=== PATIENT | female | born 1955 | race Caucasian/White ===

== ENCOUNTER 2025-03-09 09:44 | Inpatient (IN) | payer SELFPAY ==
[~2025-03-09] VITALS: Ht 160 cm; Wt 99.8 kg
[2025-03-09] VITALS (47 sets, daily range): BP systolic 57–131; BP diastolic 15–99; PULSE 77–154; RESP 16–36; TEMP 35.028–36.3; O2SAT 94–100
[2025-03-09] MEDS: DILTIAZEM HCL 5MG/ML 5ML VIAL IV ONE ×2 (10:12→10:52)
[2025-03-09 10:27] LABS: HEMATOCRIT. 42.7 % (36.0-48.0); HEMOGLOBIN. 12.6 g/dL (12.0-16.0); MEAN PLATELET VOLUME 8.0 fl (7.4-10.4); PLATELET 88 x1000/uL (130-400); RED BLOOD CELL COUNT 5.19 mill/uL (4.2-5.4); RED CELL DISTRIBUTION WIDTH 18.4 % (11.6-14.6)
[2025-03-09] MEDS: DILTIAZEM HCL 60MG TABLET PO ONE (10:31)
[2025-03-09 10:42] LABS: CREATININE 1.8 mg/dL (0.6-1.0); UREA NITROGEN BLOOD 30 mg/dL (9-23)
[2025-03-09 10:43] LABS: PROTEIN TOTAL 6.6 g/dL (6.0-8.3)
[2025-03-09 10:44] LABS: ASPARTATE AMINOTRANSFERASE 561 IU/L (<34); BILIRUBIN DIRECT 2.0 mg/dL (<=3.0); BILIRUBIN TOTAL 3.0 mg/dL (0.1-1.0)
[2025-03-09 10:53] LABS: TROPONIN I HIGH SENSITIVITY 470 ng/L (3.0-34)
[2025-03-09 11:10] LABS: BAND% 5.0 % (1.0-6.0); LYMPHOCYTES % MANUAL 7.0 % (20.0-60.0); MONOCYTES % MANUAL 7.0 % (2.0-8.0); NEUTROPHILS % MANUAL 81.0 % (45.0-75.0); PLATELET ESTIMATE DECREASED
[2025-03-09] MEDS: PIPERACILLIN/TAZO 3.375G/50ML 50 ML IV ONE (11:31)
[2025-03-09] MEDS: DEXTROSE 50% WATER 50ML SYRINGE IV ONE ×2 (11:31→12:10)
[2025-03-09] MEDS: SODIUM CHLORIDE 0.9% (SEPSIS BOLUS) IV SCH (11:31)
[2025-03-09 11:40] LABS: INR 2.5
[2025-03-09] MEDS: VANCOMYCIN 1G PREMIX 200 ML IV ONE (12:09)
[2025-03-09] MEDS: SODIUM CHLORIDE 0.9% 1,000 ML IV ONE (12:10)
[2025-03-09 12:31] LABS: BG BASE EXCESS -16.8 mmol/L (-2.0-3.0); BG CARBOXYHEMOGLOBIN 1.0 % (0.5-1.5); BG DEOXYHEMOGLOBIN 6.3 % (0.0-5.0); BG FRACTION INSPIRED OXYGEN 70; BG HCO3 ACT 9.0 mmol/L (21.0-28.0); BG METHEMOGLOBIN 0.3 % (0.5-1.5); BG OXYGEN SATURATION 93.6 % (94.0-98.0); BG OXYHEMOGLOBIN 92.4 % (94.0-98.0); BG PCO2 22.4 mmHg (32.0-45.0); BG PH 7.222 (7.350-7.450); BG PO2 82.1 mmHg (83.0-108.0); BG SAMPLE SITE RIGHT RADIAL; BG TOTAL HEMOGLOBIN 12.5 g/dL (12.0-16.0); BG TOTAL RESPIRATORY RATE 36 b/min; BG VENT MODE MASK - BIPAP; BG VENT RATE 20.0 set
[2025-03-09] MEDS ORDERED: CALCIUM CHLORIDE 1GM/10ML SYR IV NR (17:00)
[2025-03-09] MEDS: PHENYLEPHRINE 50MG/250ML PMX 250 ML IV PRN (17:05)
[2025-03-09] MEDS: SODIUM BICARBONATE 8.4% 50MEQ/50ML SYR IV NR ×2 (17:06→17:07)
[2025-03-09] MEDS: VASOPRESSIN 20 UNIT in SODIUM CHLORIDE 0.9% 99 ML IV PRN (17:07)
[2025-03-09] MEDS: DEXT 5%/0.9% NACL 1,000 ML IV ONE (17:10)
[2025-03-09] MEDS: VANCOMYCIN 750MG/150ML (BAXTER) IV SCH (17:10)
[2025-03-09] MEDS: BLOOD SUGAR DIAGNOSTIC STRIP TEST SCH (17:11)
[2025-03-09] MEDS ORDERED: IPRATROPIUM/ALBUTEROL 0.5-3(2.5)MG/3ML NEB HHN PRN (17:15)
[2025-03-09 17:46] LABS: BG BASE EXCESS -23.9 mmol/L (-2.0-3.0); BG CARBOXYHEMOGLOBIN 1.0 % (0.5-1.5); BG DEOXYHEMOGLOBIN 6.7 % (0.0-5.0); BG FRACTION INSPIRED OXYGEN 100; BG HCO3 ACT 8.8 mmol/L (21.0-28.0); BG METHEMOGLOBIN 0.2 % (0.5-1.5); BG OXYGEN SATURATION 93.2 % (94.0-98.0); BG OXYHEMOGLOBIN 92.1 % (94.0-98.0); BG PCO2 46.9 mmHg (32.0-45.0); BG PEEP (cmH2O) 5.0 cmH2O; BG PH 6.893 (7.350-7.450); BG PO2 100.1 mmHg (83.0-108.0); BG SAMPLE SITE RIGHT RADIAL; BG TIDAL VOLUME(mL) 450.0 mL; BG TOTAL HEMOGLOBIN 12.9 g/dL (12.0-16.0); BG VENT MODE VENT - AC; BG VENT RATE 18.0 set
[2025-03-09] MEDS ORDERED: SODIUM BICARBONATE 150 MEQ in SODIUM CHLORIDE 0.45% 850 ML IV SCH (18:00)
[2025-03-09] MEDS: SODIUM BICARBONATE 8.4% 50MEQ/50ML SYR IV SCH (18:00)
[2025-03-09] MEDS: PROPOFOL 10MG/ML 100ML 100 ML IV PRN (19:26)
[2025-03-09] MEDS: NOREPINEPHRINE 8MG/250ML PMX 250 ML IV PRN (19:27)
[2025-03-09 19:30] LABS: PHOSPHORUS 10.1 mg/dL (2.5-4.9)
[2025-03-09] MEDS: SODIUM BICARBONATE 150 MEQ in DEXTROSE 5% WATER 850 ML IV SCH (20:01)
[2025-03-09] MEDS: PHENYLEPHRINE 100 MG in DEXT 5% WATER 240 ML IV PRN (20:02)
[2025-03-09] MEDS: NOREPINEPHRINE 32 MG in DEXT 5% WATER 218 ML IV PRN (20:02)
[2025-03-09] MEDS: FENTANYL 2500MCG/250ML PMX 250 ML IV PRN (20:03)
[2025-03-09 20:32] LABS: INFLUENZA TYPE A Presumptive Negative (Pres. Neg.); INFLUENZA TYPE B Presumptive Negative (Pres. Neg.)
[2025-03-09 20:33] LABS: RESPIRATORY SYNCYTIAL VIRUS Not Detected (Not Detectd)
[2025-03-09] MEDS: PIPERACILLIN/TAZO 3.375G/50ML 50 ML IV SCH (20:56)
[2025-03-09] MEDS: MIDODRINE HCL 5MG TABLET PO SCH (20:56)
[2025-03-09] MEDS: LACTATED RINGERS 250 ML IV ONE (21:24)
[2025-03-09 21:26] LABS: BG BASE EXCESS -18.4 mmol/L (-2.0-3.0); BG CARBOXYHEMOGLOBIN 0.7 % (0.5-1.5); BG DEOXYHEMOGLOBIN 4.4 % (0.0-5.0); BG FRACTION INSPIRED OXYGEN 80%; BG HCO3 ACT 10.0 mmol/L (21.0-28.0); BG METHEMOGLOBIN 0.3 % (0.5-1.5); BG OXYGEN SATURATION 95.6 % (94.0-98.0); BG OXYHEMOGLOBIN 94.6 % (94.0-98.0); BG PCO2 32.7 mmHg (32.0-45.0); BG PEEP (cmH2O) 5.0 cmH2O; BG PH 7.104 (7.350-7.450); BG PO2 93.8 mmHg (83.0-108.0); BG SAMPLE SITE LEFT BRACHIAL; BG TIDAL VOLUME(mL) 450.0 mL; BG TOTAL HEMOGLOBIN 12.4 g/dL (12.0-16.0); BG VENT MODE VENT - AC; BG VENT RATE 20.0 set
[2025-03-09 22:51] LABS: HEMATOCRIT. 39.2 % (36.0-48.0); HEMOGLOBIN. 11.4 g/dL (12.0-16.0); MEAN PLATELET VOLUME 8.5 fl (7.4-10.4); PLATELET 82 x1000/uL (130-400); RED BLOOD CELL COUNT 4.69 mill/uL (4.2-5.4); RED CELL DISTRIBUTION WIDTH 18.3 % (11.6-14.6)
[2025-03-09 23:04] LABS: CREATININE 2.2 mg/dL (0.6-1.0); UREA NITROGEN BLOOD 38.0 mg/dL (9-23)
[2025-03-09 23:19] LABS: BAND% 3.0 % (1.0-6.0); LYMPHOCYTES % MANUAL 7.0 % (20.0-60.0); MONOCYTES % MANUAL 4.0 % (2.0-8.0); NEUTROPHILS % MANUAL 86.0 % (45.0-75.0); NUCLEATED RED BLOOD CELLS 1 /100 WBC
[2025-03-09 23:21] LABS: PLATELET ESTIMATE DECREASED
[2025-03-09] MEDS: DEXTROSE 50% WATER 50ML SYRINGE IV PRN (23:44)
[2025-03-10] VITALS (36 sets, daily range): BP systolic 31–95; BP diastolic 14–64; PULSE 55–144; RESP 8–32; TEMP 36.1; O2SAT 0–95
[2025-03-10] MEDS: MIDAZOLAM 100MG/100ML PMX 100 ML IV PRN (00:37)
[2025-03-10] MEDS: EPINEPHRINE 10 MG in SODIUM CHLORIDE 0.9% 240 ML IV PRN (01:09)
[2025-03-10] MEDS: CALCIUM GLUCONATE 1GM PREMIX 50 ML IV NR (01:25)
[2025-03-10] MEDS: DEXTROSE 50% WATER 50ML SYRINGE IV NR (01:25)
[2025-03-10] MEDS: INSULIN REGULAR (HUMULIN R) 1000UNITS/10ML VIAL IV NR (01:25)
[2025-03-10] MEDS: SODIUM ZIRCONIUM CYCLOSILICATE 10GM/PACKET PO NR (01:26)
[2025-03-10] MEDS: SODIUM BICARBONATE 8.4% 50MEQ/50ML SYR IV NR (01:26)
[2025-03-10] MEDS: AZITHROMYCIN 500MG/250ML 250 ML IV SCH (01:26)
[2025-03-10] MEDS: DOPAMINE 800MG PREMIX (DOUBLE) 250 ML IV PRN (01:54)
[2025-03-10] MEDS: EPINEPHRINE 20 MG in SODIUM CHLORIDE 0.9% 480 ML IV PRN (02:40)
[2025-03-10] MEDS ORDERED: HEPARIN 5000 UNITS/ML VIAL IV SCH (03:15)
[2025-03-10] MEDS ORDERED: HEPARIN 5000 UNITS/ML VIAL IV PRN ×2 (03:15)
[2025-03-10 04:03] LABS: INR 3.5
[2025-03-10] MEDS: HEPARIN 25,000 UNITS PREMIX 250 ML IV PRN (05:16)
[2025-03-10 06:14] LABS: HEMATOCRIT. 34.6 % (36.0-48.0); HEMOGLOBIN. 9.8 g/dL (12.0-16.0); MEAN PLATELET VOLUME 8.5 fl (7.4-10.4); PLATELET 65 x1000/uL (130-400); RED BLOOD CELL COUNT 3.94 mill/uL (4.2-5.4); RED CELL DISTRIBUTION WIDTH 18.7 % (11.6-14.6)
[2025-03-10] MEDS ORDERED: TENECTEPLASE 50MG/VIAL (FOR MI OR PE) IV SCH (08:45)
[2025-03-10] MEDS ORDERED: ASPIRIN 81MG TABLET PO SCH (09:00)
[2025-03-10] MEDS ORDERED: PANTOPRAZOLE SODIUM 40 MG/VIAL IV SCH (09:00)
[2025-03-10 10:30] LABS: BAND% 32.0 % (1.0-6.0); LYMPHOCYTES % MANUAL 11.0 % (20.0-60.0); MONOCYTES % MANUAL 7.0 % (2.0-8.0); NEUTROPHILS % MANUAL 50.0 % (45.0-75.0); NUCLEATED RED BLOOD CELLS 5 /100 WBC; PLATELET ESTIMATE DECREASED
[2025-03-10 11:03] LABS: CREATININE 2.5 mg/dL (0.6-1.0)
[2025-03-10 11:04] LABS: TRIGLYCERIDE 342.0 mg/dL (0-150); UREA NITROGEN BLOOD 35.0 mg/dL (9-23)
[2025-03-10] MEDS ORDERED: VANCOMYCIN 750MG/150ML (BAXTER) IV SCH (12:00)
== END 2025-03-10 14:18 | DRG 720 ==
LOC: ER 09:56 → 5EST 12:48 → EDBEDREQ 12:54 → EDBEDREQSVC 12:54 → EDBEDREQTM 12:54 → EDBEDREQSVC 14:03 → MICUNO 16:18
PROVIDERS: ADMIT Internal Medicine; ATTEND Internal Medicine
PROC: 5A09357 Assistance with Respiratory Ventilation, Less than 24 Consecutive Hours, Continuous Positive Airway Pressure (ICD-10-PCS; principal; 2025-03-09)
PROC: 5A1935Z Respiratory Ventilation, Less than 24 Consecutive Hours (ICD-10-PCS; 2025-03-09)
PROC: 0BH17EZ Insertion of Endotracheal Airway into Trachea, Via Natural or Artificial Opening (ICD-10-PCS; 2025-03-09)
PROC: 02HV33Z Insertion of Infusion Device into Superior Vena Cava, Percutaneous Approach (ICD-10-PCS; 2025-03-09)
PROC: B548ZZA Ultrasonography of Superior Vena Cava, Guidance (ICD-10-PCS; 2025-03-09)
PROC: 5A0935A Assistance with Respiratory Ventilation, Less than 24 Consecutive Hours, High Flow/Velocity Cannula (ICD-10-PCS; 2025-03-09)
PROC: 03HY32Z Insertion of Monitoring Device into Upper Artery, Percutaneous Approach (ICD-10-PCS; 2025-03-10)
PROC: 5A12012 Performance of Cardiac Output, Single, Manual (ICD-10-PCS; 2025-03-10)
DX: A41.9 Sepsis, unspecified organism (principal); R65.21 Severe sepsis with septic shock; N17.0 Acute kidney failure with tubular necrosis; J96.01 Acute respiratory failure with hypoxia; G93.40 Encephalopathy, unspecified; D68.9 Coagulation defect, unspecified; E83.39 Other disorders of phosphorus metabolism; E87.5 Hyperkalemia; J18.9 Pneumonia, unspecified organism; D69.6 Thrombocytopenia, unspecified; Z20.822 Contact with and (suspected) exposure to COVID-19; E16.2 Hypoglycemia, unspecified; F17.210 Nicotine dependence, cigarettes, uncomplicated
CPT/HCPCS: 31500; 36415; 36600; 71045; 80048; 80076; 82140; 82375; 82805; 82962; 83036; 83605; 83735; 84100; 84145; 84478; 84484; 85025; 85379; 87070; 87420; 87804; 92950; 93005; 93970; 94002; 94003; 94070; 94660; 94664; 99291; A4606; J0456; J0612; J1265; J1644; J1815; J2250; J2371; J2543; J2704; J3010; J3101; J3373; J3490; J7030; J7040; J7050; J7060; J7070